=== PATIENT | male | born 1985 | race Caucasian/White ===

== ENCOUNTER 2021-07-08 21:34 | Emergency (ER) | payer SELFPAY ==
[~2021-07-08] VITALS: Ht 170.2 cm; Wt 107.0 kg
[2021-07-08 22:32] VITALS: BP 118/67
[2021-07-08 23:03] LABS: CLARITY URINE CLEAR (CLEAR); COLOR URINE YELLOW (YELLOW); KETONES URINE NEGATIVE (NEGATIVE); LEUKOCYTE ESTERASE URINE NEGATIVE (NEGATIVE); NITRITE URINE NEGATIVE (NEGATIVE); OCCULT BLOOD URINE NEGATIVE (NEGATIVE); PH URINE 5.5 (4.5-8.0); PROTEIN URINE NEGATIVE (NEGATIVE)
[2021-07-08] MEDS ORDERED: KETOROLAC 60MG/2ML VIAL IM ONE (23:30)
[2021-07-08 23:32] LABS: CHLORIDE 107 mEq/L (98-107)
[2021-07-08 23:34] LABS: BASOPHILS % 0.8 % (0.0-2.0); HEMATOCRIT. 44.6 % (42.0-52.0); LYMPHOCYTES % 34.8 % (20.0-50.0); MEAN CORPUSCULAR HEMOGLOBIN 29.3 pg (28.0-32.0); MEAN CORPUSCULAR VOLUME 86.8 fL (80.0-94.0); MEAN PLATELET VOLUME 9.1 fl (7.4-10.4); MONOCYTES % 7.3 % (2.0-8.0); NEUTROPHILS % 52.1 % (40.0-76.0); PLATELET 196 x1000/uL (130-400); RED BLOOD CELL COUNT 5.13 mill/uL (4.7-6.1); RED CELL DISTRIBUTION WIDTH 13.8 % (11.6-14.6)
[2021-07-09] MEDS ORDERED: IBUP-2030 MT (00:16)
== END 2021-07-09 01:00 | disposition home or self-care (01) ==
LOC: ER 21:34
DX: M54.50 Low back pain, unspecified (principal); R10.32 Left lower quadrant pain
CPT/HCPCS: 36415; 80048; 81003; 85025; 99283; J1885